=== PATIENT | male | born 1980 | race Caucasian/White ===

== ENCOUNTER 2022-10-18 21:01 | Emergency (ER) | payer OTHER, SELFPAY ==
[2022-10-18 21:02] VITALS: BP 122/85; PULSE 69; RESP 15; TEMP 37; O2SAT 95; BMI 23.1
[2022-10-18] MEDS: Tetracaine 0.5% Ophthalmic Bottle 1 DRP LEFT EYE (21:29)
--- NOTE | 2022-10-18 22:00 | EDS_ITS ---
HPI History of Present Illness Chief Complaint: Eye Problem Detail of Chief Complaint: Foreign body right eye Informant: patient Onset/Context/Timing Location: Right Eye Onset: Yesterday Context: Sudden Onset Timing: Continuous Current Severity: Mild Maximum Severity: Moderate Worsened by: Nothing specific Relieved by: Nothing Associated Symptoms Associated Symptoms - Eyes: Drainage, Eyelid swelling, Foreign body sensation, Pain and Redness; Negative for Burning, Crusting, Itching, Matting or Photophobia History of injury: Yes and Foreign body Visual correction: None Narrative Narrative: Patient a 41-year-old male who was grinding metal without protective glasses yesterday. He felt a piece of metal that when his eye. There is no history of metal pounding on metal. He was seen at urgent care. Attempt to remove with Q- tip was unsuccessful. Patient was sent to the emergency department. He denies history of glaucoma, diabetes or any prior eye problems. Prior similar symptoms: No Recent Illness/Hospitalization: No PFSH PFSH Medical History no medical history no medical history Allergy/AdvReac Type Severity Reaction Status Date / Time No Known Allergies Allergy Verified 10/18/22 21:06 Social History Smoking Status: Never smoker ROS ROS ED Constitutional Constitutional ED: Denies chills, fever(s) or subjective Eyes Eyes: Reports other Details: Per HPI narrative ; Denies blurry vision, change in vision or diplopia ENT ENT ED: Denies ear pain, rhinorrhea or sore throat Gastrointestinal Gastrointestinal: Denies nausea or vomiting Integumentary Denies rash Hematologic/Lymphatic Hematologic/Lymphatic: Denies easy bleeding or easy bruising EXAM Physical Exam Const Vital Signs: 10/18/22 21:02 Temperature 98.6 F Temperature Source Temporal Pulse Rate 69 Respiratory Rate 15 Blood Pressure 122/85 H Blood Pressure Mean 97 Pulse Ox 95 Oxygen Delivery Method Room Air Positive well nourished and well developed General Appearance ED: well developed and NAD HEENT HEENT Narrative: Head is atraumatic normocephalic. Ears are normal. Nose: external nose normal Eyes Eyes Narrative: The right eye is injected. There is an obvious foreign body noted 2 mm from the limbal border at 9:00. There is no photophobia to direct or consensual light. Extraocular muscles are intact. There is slight drainage noted right eye. The conjunctive a is slightly injected on the right. Neck no lymphadenopathy, supple and no JVD Resp normal respiratory effort Cardio regular rate and regular rhythm Neuro oriented x3 and CN's II-XII intact bilaterally Sensorium / Orientation: alert Psych Psych Narrative: Normal Skin no wounds MDM MDM MDM Narrative Medical decision making narrative: Patient has corneal foreign body with what appears to be a rust ring. Slit-lamp exam reveals foreign body with rust ring. The eye was anesthetized with tetracaine. Using ophthalmic bur the metallic foreign body and rust ring was removed in total. Because patient has colored drainage will place on antibiotic and refer to ophthalmology. Discharge Plan Triage Chief Complaint: Eye Problem ED Provider: Sorin Schmidt Dx/Rx/DC Orders Clinical Impression: Foreign body in cornea, right eye, initial encounter, Acute conjunctivitis of right eye Primary Care Provider: Care Physician,No Primary Referrals: Morris Lomas MD [Med Staff - Active Staff] - 2 Days Care Physician,No Primary [Primary Care Provider] - Activity Restrictions/Additional Instructions: Instill ciprofloxacin ophthalmic drop every 2-4 hours while awake for the next 3 to [address] Jordan office in the morning to be seen within the next 24 to 48 hours. Disposition Disposition: Home, Self Care
[2022-10-18] MEDS: Ciprofloxacin 0.3% 2.5ml Bottle 1 DRP LEFT EYE (22:23)
== END 2022-10-18 22:26 | disposition home or self-care (01) ==
PROVIDERS: Emergency Provider Emergency Medicine; Visit Provider Emergency Medicine
DX: T15.01XA Foreign body in cornea, right eye, initial encounter (principal); H10.31 Unspecified acute conjunctivitis, right eye; X58.XXXA Exposure to other specified factors, initial encounter
CPT/HCPCS: 99283